=== PATIENT | female | born 1975 | race Hispanic/Latino ===

== ENCOUNTER 2022-06-12 15:53 | Inpatient (IN) | payer SELFPAY ==
[~2022-06-12] VITALS: Ht 154.9 cm; Wt 61.2 kg
[2022-06-12 16:43] LABS: BASOPHILS % 0.7 % (0.0-1.0); CLARITY,URINE SL CLOUDY (CLEAR); COLOR,URINE YELLOW (YELLOW); EOSINOPHILS % 1.4 % (0.0-6.0); HEMATOCRIT 26.8 % (34.2-44.1); HEMOGLOBIN 8.6 g/dL (12.0-16.0); KETONES,URINE NEGATIVE (NEGATIVE); LEUKOCYTE ESTERASE ,URINE NEGATIVE (NEGATIVE); LYMPHOCYTES # (AUTO) 0.7 (1.0-3.2); LYMPHOCYTES % 23.9 % (18.0-39.1); MEAN CORPUSCULAR HEMOGLOBIN 28.5 pg (28-32); MEAN CORPUSCULAR HGB CONC 32.1 g/dL (31-35); MEAN CORPUSCULAR VOLUME 88.7 fL (81-99); MONOCYTES # (AUTO) 0.1 (0.2-0.8); MONOCYTES % 2.4 % (4.4-11.3); NEUTROPHILS # (AUTO) 2.1 (2.1-6.9); NEUTROPHILS % 71.6 % (38.7-80.0); NITRITE,URINE NEGATIVE (NEGATIVE); PLATELET COUNT 62 x10e3/uL (140-360); PROTEIN,URINE DIPSTICK >=300 (NEGATIVE); RED BLOOD COUNT 3.02 x10e6/uL (3.6-5.1); RED CELL DISTRIBUTION WIDTH 14.1 % (11.7-14.4); URINE UROBILINOGEN 0.2 mg/dL (0.2 - 1)
[2022-06-12 16:54] LABS: AMORPHOUS SEDIMENT,URINE MODERATE (FEW); BACTERIA,URINE MODERATE /HPF; RBC,URINE 0-5 /HPF (0-5)
[2022-06-12 16:58] LABS: ANION GAP 14.2 mmol/L (8-16); CREATININE, SERUM 3.54 mg/dL (0.57-1.11)
[2022-06-12 16:59] LABS: POTASSIUM 5.2 mmol/L (3.5-5.1)
[2022-06-12] MEDS ORDERED: DEXTROSE 5%/0.9% SOD CHL 1,000 ML IV ONE (17:00)
[2022-06-12 17:05] LABS: AMPHETAMINES SCREEN,URINE NEGATIVE (NEGATIVE); BENZODIAZEPINES SCREEN,URINE NEGATIVE (NEGATIVE); PHENCYCLIDINE SCREEN,URINE NEGATIVE (NEGATIVE)
[2022-06-12 17:19] LABS: SALICYLATE < 5.0 mg/dL (0-30)
[2022-06-12 17:31] LABS: FREE THYROXINE INDEX 1.8633 (1.4-3.8); THYROID STIMULATING HORMONE 2.046 uIU/mL (0.350-4.940)
[2022-06-12] MEDS ORDERED: DEXTROSE 50% SYRINGE 50 ML IV PRN (18:30)
[2022-06-12] MEDS ORDERED: SODIUM BICARBONATE 8.4% INJ 50 ML SYR IV STA (18:30)
[2022-06-12] MEDS ORDERED: SODIUM BICARBONATE 8.4% SYRING 50 ML ONE (18:59)
[2022-06-12] MEDS: SODIUM BICARBONATE 8.4% 150 ML in DEXTROSE 5% 1,000 ML IV SCH (19:00)
[2022-06-12 20:13] LABS: CREATINE KINASE MB 3.6 ng/mL (0-5.0)
[2022-06-12 21:00] VITALS: BP 151/86
[2022-06-12 21:27] VITALS: BP 137/80
[2022-06-12] MEDS: INSULIN REGULAR, HUMAN 100 UNIT/1 ML SQ SCH (21:47)
[2022-06-12 22:00] VITALS: BP 182/90
[2022-06-12] MEDS ORDERED: COREG12.5 MG PO (22:01)
[2022-06-12] MEDS ORDERED: CYMBALTA30 MG PO (22:01)
[2022-06-12] MEDS ORDERED: HUMULIN-R100 UNITS/ SQ (22:01)
[2022-06-12] MEDS ORDERED: LYRICA150 MG PO ×2 (22:01)
[2022-06-12] MEDS ORDERED: LEVETIRACETAM500 MG PO (22:01)
[2022-06-12] MEDS ORDERED: TRESIBA100 UNIT/1 SQ (22:01)
[2022-06-12] MEDS ORDERED: VITAMIN D3250 MCG PO (22:01)
[2022-06-12] MEDS ORDERED: NIFEDIPINE ER30 M1 PO (22:01)
[2022-06-12] MEDS ORDERED: PREGABALIN 75 MG CAP PO PRN (22:30)
[2022-06-12] MEDS ORDERED: DOCUSATE SODIUM 100 MG CAP PO PRN (22:45)
[2022-06-12 23:00] VITALS: BP 192/94
[2022-06-12] MEDS: CARVEDILOL 12.5 MG TAB PO SCH (23:03)
[2022-06-12] MEDS: LEVETIRACETAM 500 MG TAB PO SCH (23:04)
[2022-06-12] MEDS ORDERED: ACETAMINOPHEN 325 MG TAB PO PRN (23:15)
[2022-06-12] MEDS ORDERED: GUAIFENESIN/DEXTROMETHORPHAN LIQD 5 ML UDC PO PRN (23:15)
[2022-06-12] MEDS ORDERED: MELATONIN 3 MG TAB PO PRN (23:15)
[2022-06-12] MEDS: HYDRALAZINE HCL 20 MG/ML VIAL IV PRN (23:30)
[2022-06-13] VITALS (16 sets, daily range): BP systolic 94–191; BP diastolic 63–91
[2022-06-13] MEDS: HYDRALAZINE HCL 20 MG/ML VIAL IV PRN ×2 (04:32→11:09)
[2022-06-13] MEDS: SODIUM BICARBONATE 8.4% 150 ML in DEXTROSE 5% 1,000 ML IV SCH ×3 (04:45→17:55)
[2022-06-13 04:56] LABS: BASOPHILS % 0.4 % (0.0-1.0); EOSINOPHILS % 1.1 % (0.0-6.0); LYMPHOCYTES # (AUTO) 0.7 (1.0-3.2); LYMPHOCYTES % 25.7 % (18.0-39.1); MEAN CORPUSCULAR HEMOGLOBIN 28.4 pg (28-32); MEAN CORPUSCULAR HGB CONC 32.7 g/dL (31-35); MEAN CORPUSCULAR VOLUME 86.9 fL (81-99); MONOCYTES # (AUTO) 0.1 (0.2-0.8); MONOCYTES % 4.8 % (4.4-11.3); NEUTROPHILS # (AUTO) 1.8 (2.1-6.9); NEUTROPHILS % 67.6 % (38.7-80.0); PLATELET COUNT 60 x10e3/uL (140-360); RED BLOOD COUNT 2.36 x10e6/uL (3.6-5.1); RED CELL DISTRIBUTION WIDTH 13.5 % (11.7-14.4)
[2022-06-13 05:02] LABS: HEMATOCRIT 20.5 % (34.2-44.1); HEMOGLOBIN 6.7 g/dL (12.0-16.0)
[2022-06-13 05:17] LABS: ALBUMIN 2.4 g/dL (3.5-5.0); ALBUMIN/GLOBULIN RATIO 0.8 (0.8-2.0); ANION GAP 12.4 mmol/L (8-16); BILIRUBIN,DIRECT 0.1 mg/dL (0.0-0.5); CALCIUM 7.8 mg/dL (8.4-10.2); CREATININE, SERUM 3.03 mg/dL (0.57-1.11); POTASSIUM 4.4 mmol/L (3.5-5.1)
[2022-06-13 06:12] LABS: CHOL/HDL RATIO 4.8 (3.0-3.6)
[2022-06-13 06:19] LABS: CREATINE KINASE MB 6.3 ng/mL (0-5.0)
[2022-06-13] MEDS: INSULIN REGULAR, HUMAN 100 UNIT/1 ML SQ SCH ×4 (07:30→21:00)
[2022-06-13] MEDS: NIFEDIPINE CR 30 MG TAB PO SCH (08:28)
[2022-06-13] MEDS: CARVEDILOL 12.5 MG TAB PO SCH ×2 (08:28→17:51)
[2022-06-13] MEDS: DULOXETINE HCL 30 MG DELAYED RELEASE PO SCH (08:28)
[2022-06-13] MEDS: MULTIVITAMINS/MINERALS TAB PO SCH (08:28)
[2022-06-13 08:44] LABS: FERRITIN 570.17 ng/mL (4.63-204.00)
[2022-06-13 09:45] LABS: ANION GAP 12.4 mmol/L (8-16); CALCIUM 7.8 mg/dL (8.4-10.2); CREATININE, SERUM 2.98 mg/dL (0.57-1.11); MAGNESIUM 2.6 MG/DL (1.3-2.1); PHOSPHORUS 4.2 MG/DL (2.3-4.7); POTASSIUM 4.4 mmol/L (3.5-5.1)
[2022-06-13] MEDS ORDERED: EPOETIN ALFA-EPBX 10,000 UNIT/ML VIAL SC SCH (11:00)
[2022-06-13 12:01] LABS: HEMATOCRIT 22.8 % (34.2-44.1); HEMOGLOBIN 7.5 g/dL (12.0-16.0)
[2022-06-13] MEDS: ONDANSETRON HCL INJ 2MG/ML 2ML 2 MG/ML VIAL IV PRN ×2 (14:00→20:45)
[2022-06-13 15:27] LABS: CREATININE,URINE RANDOM 108.14 mg/dL (47-110)
[2022-06-13] MEDS ORDERED: DEXTROSE 5% 0 ML IV ONE (18:09)
[2022-06-13] MEDS: LEVETIRACETAM 500 MG TAB PO SCH (19:52)
[2022-06-14 01:01] VITALS: BP 97/58
[2022-06-14 05:01] LABS: BASOPHILS % 0.5 % (0.0-1.0); EOSINOPHILS # (AUTO) 0.1 (0.0-0.4); EOSINOPHILS % 2.7 % (0.0-6.0); LYMPHOCYTES # (AUTO) 1.3 (1.0-3.2); LYMPHOCYTES % 33.8 % (18.0-39.1); MEAN CORPUSCULAR HEMOGLOBIN 28.4 pg (28-32); MEAN CORPUSCULAR HGB CONC 31.7 g/dL (31-35); MEAN CORPUSCULAR VOLUME 89.5 fL (81-99); MONOCYTES # (AUTO) 0.2 (0.2-0.8); MONOCYTES % 5.4 % (4.4-11.3); NEUTROPHILS # (AUTO) 2.1 (2.1-6.9); NEUTROPHILS % 57.1 % (38.7-80.0); PLATELET COUNT 60 x10e3/uL (140-360); RED BLOOD COUNT 2.29 x10e6/uL (3.6-5.1); RED CELL DISTRIBUTION WIDTH 14.2 % (11.7-14.4)
[2022-06-14 05:06] LABS: HEMATOCRIT 20.5 % (34.2-44.1); HEMOGLOBIN 6.5 g/dL (12.0-16.0)
[2022-06-14 05:28] LABS: ALBUMIN 2.3 g/dL (3.5-5.0); ALBUMIN/GLOBULIN RATIO 0.8 (0.8-2.0); CREATININE, SERUM 3.39 mg/dL (0.57-1.11)
[2022-06-14 06:15] VITALS: BP 137/66
[2022-06-14] MEDS: INSULIN REGULAR, HUMAN 100 UNIT/1 ML SQ SCH ×2 (07:30→11:30)
[2022-06-14] MEDS: SODIUM BICARBONATE 8.4% 150 ML in DEXTROSE 5% 1,000 ML IV SCH (07:48)
[2022-06-14] MEDS ORDERED: FERROUS SULFATE 325 MG TAB PO SCH (08:00)
[2022-06-14 08:07] LABS: HEMATOCRIT 23.5 % (34.2-44.1); HEMOGLOBIN 7.3 g/dL (12.0-16.0)
[2022-06-14] MEDS: DULOXETINE HCL 30 MG DELAYED RELEASE PO SCH (08:32)
[2022-06-14] MEDS: NIFEDIPINE CR 30 MG TAB PO SCH (08:33)
[2022-06-14] MEDS: CARVEDILOL 12.5 MG TAB PO SCH (08:34)
[2022-06-14] MEDS: MULTIVITAMINS/MINERALS TAB PO SCH (08:34)
[2022-06-14] MEDS ORDERED: DEXTROSE 5%/0.9% SOD CHL 1,000 ML IV SCH (08:45)
[2022-06-14 08:54] VITALS: BP 149/72
[2022-06-14] MEDS ORDERED: CEPHALEXIN250 MG PO (09:00)
[2022-06-14] MEDS ORDERED: Ferrous Sulfate PO (09:00)
[2022-06-14] MEDS ORDERED: CALCIUM GLUCONATE 10% INJ 13.95 MEQ in SODIUM CHLORIDE 0.9% 100 ML IV ONE (09:15)
[2022-06-14 09:30] VITALS: BP 149/72
[2022-06-14] MEDS: ONDANSETRON HCL INJ 2MG/ML 2ML 2 MG/ML VIAL IV PRN (10:42)
[2022-06-14 13:36] VITALS: BP 153/79
[2022-06-14] MEDS ORDERED: AZITHROMYCIN 250 MG TAB PO SCH (19:00)
== END 2022-06-14 14:16 | disposition home or self-care (01) | DRG 637 ==
LOC: ER 16:18 → ERHOLD 18:38 → ICU 20:50 → MED/SURG2 06-13 14:13
PROVIDERS: ADMIT Internal Medicine; ATTEND Internal Medicine
DX: E11.649 Type 2 diabetes mellitus with hypoglycemia without coma (principal); G93.41 Metabolic encephalopathy; J18.9 Pneumonia, unspecified organism; D61.818 Other pancytopenia; E87.20 Acidosis, unspecified; N18.4 Chronic kidney disease, stage 4 (severe); N17.9 Acute kidney failure, unspecified; T68.XXXA Hypothermia, initial encounter; E83.51 Hypocalcemia; E11.22 Type 2 diabetes mellitus with diabetic chronic kidney disease; E78.5 Hyperlipidemia, unspecified; Z79.4 Long term (current) use of insulin; E87.5 Hyperkalemia; I12.9 Hypertensive chronic kidney disease with stage 1 through stage 4 chronic kidney disease, or unspecified chronic kidney disease; T15.82XA Foreign body in other and multiple parts of external eye, left eye, initial encounter; G40.909 Epilepsy, unspecified, not intractable, without status epilepticus; I16.0 Hypertensive urgency; E11.319 Type 2 diabetes mellitus with unspecified diabetic retinopathy without macular edema; H35.042 Retinal micro-aneurysms, unspecified, left eye; Z20.822 Contact with and (suspected) exposure to COVID-19
CPT/HCPCS: 36415; 70450; 71045; 76770; 80048; 80053; 80061; 80307; 80320; 80329; 81001; 82248; 82550; 82553; 82570; 82607; 82728; 82948; 83036; 83540; 83605; 83735; 84100; 84300; 84436; 84443; 84466; 84479; 84484; 85014; 85018; 85025; 86160; 86225; 87040; 93005; 94799; 96361; 96372; 99251; 99284; J0360; J0456; J0610; J0696; J1817; J2405; J7042; J7050; J7070